=== PATIENT | male | born 1970 | race Caucasian/White ===

== ENCOUNTER 2025-03-19 06:29 | Day surgery (SDC) | payer OTHER, SELFPAY | END 2025-03-19 08:53 | disposition home or self-care (01) | LOC: GI 06:29 | PROVIDERS: ATTENDING PHYSICIAN Specialist | DX: Z12.11 Encounter for screening for malignant neoplasm of colon (principal); K63.3 Ulcer of intestine; K62.89 Other specified diseases of anus and rectum; K63.89 Other specified diseases of intestine; D12.0 Benign neoplasm of cecum; K63.5 Polyp of colon; K50.00 Crohn's disease of small intestine without complications; Z80.0 Family history of malignant neoplasm of digestive organs | CPT/HCPCS: 45380; 88305 ==